=== PATIENT | male | born 1985 | race Caucasian/White ===

== ENCOUNTER 2019-03-09 17:11 | Emergency (ER) | payer OTHER ==
[~2019-03-09] VITALS: Ht 170.2 cm; Wt 98.6 kg
[~2019-03-09 17:11] MED LIST: ASPI1TAB21 PO
[2019-03-09 17:29] VITALS: BP 154/92; PULSE 81; RESP 18; Ht 170.2 cm; Wt 98.6 kg
[2019-03-09] MEDS ORDERED: KETOROLAC 30 MG INJ IM STA (20:09)
== END 2019-03-09 21:18 | disposition home or self-care (01) ==
LOC: FTE 17:11
DX: R51 Headache (principal)
CPT/HCPCS: 96372; J1885; Z7502